=== PATIENT | female | born 1985 | race Caucasian/White ===

== ENCOUNTER → 2019-08-24 | Outpatient (CLI) | payer BC ==
--- NOTE | 2019-08-24 22:58 | RAD ---
PA and lateral chest. HISTORY: Chest pain PA and lateral views were taken of the chest. Lungs are clear. Heart is normal in size. There is no pleural effusion. IMPRESSION: 1. No acute chest disease. Electronically signed by: Deejay Phelps MD (08/24/2019 10:55 PM) [facility]
== END | disposition home or self-care (01) ==
LOC: PMG 18:14
PROVIDERS: ATTEND Physician Assistant Medical
DX: R07.9 Chest pain, unspecified (principal)
CPT/HCPCS: 71046